=== PATIENT | male | born 2000 | race Caucasian/White ===

== ENCOUNTER 2025-01-16 09:33 | Emergency (ER) | payer BC, SELFPAY ==
[2025-01-16 09:47] VITALS: BP 132/66; PULSE 64; RESP 15; TEMP 36.6; O2SAT 100; BMI 23.0
[2025-01-16] MEDS: RABIES VACCINE (RABAVERT) 2.5 UNITS SYRINGE IM (11:16)
--- NOTE | 2025-01-16 11:19 | ED.RECABL ---
HPI - Recheck/Abnormal Lab/Rx General Chief Complaint: Recheck/Abnormal Lab/Rx Stated Complaint: Needs 2nd rabies shot Time Seen by Provider: 01/16/25 10:07 Source: patient, RN notes reviewed and old records reviewed Mode of arrival: Family Vehicle Limitations: no limitations History of Present Illness HPI narrative: 24-year-old male presents for rabies immunization. Had an exposure while rock climbing bat flew out of the crack that he was climbing a long flew out and sort of cyst and hit him several times and hit the back of his right leg hard enough that it fell to the alleged below and then . This did occur in [place]. Had his initial immunizations this is his 2nd he states he will be returning to [place] for the 3rd and 4th immunizations. He did not receive immunoglobulin. Patient states no symptoms no other concerns today. Related Data Allergies Allergy/AdvReac Type Severity Reaction Status Date / Time No Known Drug Allergies Allergy Verified 01/16/25 09:47 Review of Systems Review of Systems ROS Unobtainable: All systems reviewed & are unremarkable except as noted in HPI and below Patient History Social History Smoking Status: Current some day smoker Smoking Status: Current some day smoker Exam Narrative Exam Narrative: GENERAL: Alert and oriented x three, well-appearing male in no acute distress HEENT: Head normocephalic, atraumatic, EOMI, pupils reactive, face symmetric, moist mucous membranes NECK: Supple, full range of motion CARDIOVASCULAR: Regular rate and rhythm without murmurs, rubs or gallops. RESPIRATORY: Breath sounds equal bilaterally, no wheezes rales or rhonchi. ABDOMEN: Soft, nontender. Normoactive bowel sounds all 4 quadrants. No guarding or rebound, rigidity, no mass : No CVA tenderness EXTREMITIES: Normal range of motion. NEUROLOGICAL: Cranial nerves II through XII grossly intact. Moving all extremities SKIN: Warm, dry, no petechiae, no rashes or lesions. Initial Vital Signs Initial Vital Signs: Vital Signs Temperature 97.8 F 01/16/25 09:47 Pulse Rate 64 01/16/25 09:47 Respiratory Rate 15 01/16/25 09:47 Blood Pressure 132/66 01/16/25 09:47 Pulse Oximetry 100 01/16/25 09:47 Oxygen Delivery Method Room Air 01/16/25 09:47 Course Orders Ordered: Discontinued Medications Rabies Vaccine (Rabies Vaccine (Rabavert) 2.5 Units Syringe) 2.5 units IM .ONCE ONE Stop: 01/16/25 10:08 Last Admin: 01/16/25 11:16 Dose: 2.5 units Documented By: ETHAN Vital Signs Vital signs: Vital Signs - 8 hr 01/16/25 11:28 Pulse Rate 60 Respiratory Rate 17 Blood Pressure 132/63 Pulse Oximetry 100 Oxygen Delivery Method Room Air Discharge Plan Departure Patient Disposition: Home Clinical Impression: Encounter for repeat administration of rabies vaccination Activity Restrictions/Additional Instructions: Follow up for your 3rd and 4th vaccination in [place]. Day - January 20 Day - January 27 Can give ibuprofen and/or acetaminophen for any mild swelling itching or warmth at the vaccine site. Please return if you have any difficulty with fevers, breathing, rashes, alteration in mental status, chest pain or shortness of breath, persistent vomiting or other new or concerning changes. Stand Alone Forms: Patient Portal/API
[2025-01-16 11:28] VITALS: BP 132/63; PULSE 60; RESP 17; O2SAT 100
== END 2025-01-16 11:29 | disposition home or self-care (01) ==
PROVIDERS: Emergency Provider Emergency Medicine
DX: Z23 Encounter for immunization (principal); Z20.3 Contact with and (suspected) exposure to rabies
CPT/HCPCS: 90471; 90675; 99283